=== PATIENT | female | born 1995 | race Two or more races ===

== ENCOUNTER 2020-08-25 14:28 | Emergency (ER) | payer MEDICAID, OTHER ==
[~2020-08-25] VITALS: Ht 152.4 cm; Wt 63.5 kg
[2020-08-25 14:37] VITALS: BP 122/82
== END 2020-08-25 22:02 | disposition left against medical advice (07) ==
LOC: ER 14:28
DX: T78.1XXA Other adverse food reactions, not elsewhere classified, initial encounter (principal); Z53.21 Procedure and treatment not carried out due to patient leaving prior to being seen by health care provider; X58.XXXA Exposure to other specified factors, initial encounter